=== PATIENT | male | born 1990 | race Two or more races ===

== ENCOUNTER 2020-11-28 10:41 | Emergency (ER) | payer MEDICAID, OTHER ==
[~2020-11-28] VITALS: Ht 182.9 cm; Wt 82.6 kg
[2020-11-28 10:55] VITALS: BP 128/80
--- NOTE | 2020-11-28 10:58 | NUR ---
CCOLLAR IN PLACE
--- NOTE | 2020-11-28 12:51 | NUR ---
TO [facility]OL[facility] FROM LOBBY
[2020-11-28] MEDS ORDERED: METHOCARBAMOL 750 MG TABLET PO ONE (13:00)
[2020-11-28] MEDS ORDERED: KETOROLAC 30 MG/1 ML IM ONE (13:00)
[2020-11-28] MEDS ORDERED: METHOCARBAMOL 750 MG TABLET ONE (13:07)
[2020-11-28] MEDS ORDERED: KETOROLAC 30 MG/1 ML ONE (13:07)
--- NOTE | 2020-11-28 13:23 | NUR ---
PT MEDICATED PER EMAR. RESP EVEN AND UNLABORED, NADN. TBDC.
--- NOTE | 2020-11-28 13:32 | NUR ---
Patient given discharge instructions and they have confirmed that they understand the instructions. Patient ambulatory with steady gait.
== END 2020-11-28 13:33 | disposition home or self-care (01) ==
LOC: ED 13:08
DX: S16.1XXA Strain of muscle, fascia and tendon at neck level, initial encounter (principal); S39.012A Strain of muscle, fascia and tendon of lower back, initial encounter; X58.XXXA Exposure to other specified factors, initial encounter; Y93.89 Activity, other specified; Y92.89 Other specified places as the place of occurrence of the external cause; Y99.8 Other external cause status
CPT/HCPCS: 72110; 72125; 96372; 99284; J1885